=== PATIENT | female | born 1995 | race Caucasian/White ===

== ENCOUNTER 2016-04-19 10:28 | Emergency (ER) | payer OTHER ==
[2016-04-19 11:04] VITALS: BP 140/70; PULSE 70; RESP 20; TEMP 98.3; O2SAT 98
[2016-04-19 11:11] LABS: APPEARANCE,URINE Slightly Cloudy; BILIRUBIN,URINE NEGATIVE (NEGATIVE); COLOR,URINE Yellow; GLUCOSE, URINE (UA) NEGATIVE (NEGATIVE); KETONES,URINE NEGATIVE (NEGATIVE); LEUKOCYTE ESTERASE ,URINE NEGATIVE (NEGATIVE); NITRATE,URINE NEGATIVE (NEGATIVE); OCCULT BLOOD,URINE NEGATIVE (NEG-TRACE); UROBILINOGEN,URINE 0.2 (0.2-1.0 EU)
[2016-04-19 11:20] LABS: RBC,URINE NEG (0-3AV/HPF); WBC,URINE 0-1 (0-5AV/HPF)
== END 2016-04-19 11:35 | disposition home or self-care (01) ==
LOC: ED 10:28
DX: N39.0 Urinary tract infection, site not specified (principal); K59.00 Constipation, unspecified
CPT/HCPCS: 81001; 99282; 99284

== ENCOUNTER 2016-07-07 09:59 | Emergency (ER) | payer OTHER ==
[2016-07-07 10:53] LABS: BASOPHILS % (AUTO) 1 % (0-3); EOSINOPHILS % (AUTO) 2 % (0-9); HEMATOCRIT 35 % (35-47); MEAN CORPUSCULAR HGB CONC 34.9 gm/dl (32.0-36.0); MONOCYTES % (AUTO) 8.2 % (0-12); NEUTROPHILS % (AUTO) 64.2 % (37-80)
[2016-07-07 10:54] LABS: MEAN CORPUSCULAR VOLUME 81 fL (81-99)
[2016-07-07 10:57] LABS: AMPHETAMINES NEGATIVE (NEGATIVE); METHADONE NEGATIVE (NEGATIVE); OPIATES(OP13) NEGATIVE (NEGATIVE); OXYCODONE(OXY) NEGATIVE (NEGATIVE); PROPOXYPHENE(PPX) NEGATIVE (NEGATIVE); TRICYCLIC ANTIDEPRESSANTS NEGATIVE (NEGATIVE)
[2016-07-07 11:17] LABS: ALBUMIN 3.8 gm/dl (3.4-5.0); CALCIUM 8.1 mg/dl (8.5-10.1); POTASSIUM 3.5 mMol/L (3.5-5.1); THYROID STIMULATING HORMONE 1.465 uIU/ml (0.358-3.740)
[2016-07-07 13:29] VITALS: BP 109/71; PULSE 64; RESP 16; TEMP 96.8; O2SAT 99
== END 2016-07-07 12:14 | disposition home or self-care (01) ==
LOC: ED 09:59
DX: R45.851 Suicidal ideations (principal)
CPT/HCPCS: 36415; 80053; 80305; 84443; 84703; 85025; 99282

== ENCOUNTER 2016-09-15 14:30 | Emergency (ER) | payer OTHER ==
[2016-09-15 15:19] VITALS: O2SAT 98
[2016-09-15 15:41] VITALS: RESP 16
[2016-09-15 16:28] LABS: BASOPHILS % (AUTO) 1 % (0-3); EOSINOPHILS % (AUTO) 2 % (0-9); HEMATOCRIT 38 % (35-47); MEAN CORPUSCULAR HGB CONC 34.9 gm/dl (32.0-36.0); MONOCYTES % (AUTO) 9.3 % (0-12); NEUTROPHILS % (AUTO) 59.3 % (37-80)
[2016-09-15 16:29] VITALS: BP 118/76; PULSE 54; TEMP 97.8
[2016-09-15 16:33] LABS: MEAN CORPUSCULAR VOLUME 81 fL (81-99)
[2016-09-15 16:38] LABS: APPEARANCE,URINE Cloudy; BILIRUBIN,URINE NEGATIVE (NEGATIVE); COLOR,URINE Yellow; GLUCOSE, URINE (UA) NEGATIVE (NEGATIVE); KETONES,URINE NEGATIVE (NEGATIVE); LEUKOCYTE ESTERASE ,URINE NEGATIVE (NEGATIVE); NITRATE,URINE NEGATIVE (NEGATIVE); OCCULT BLOOD,URINE TRACE INTACT (NEG-TRACE); PH,URINE 5.5; UROBILINOGEN,URINE 0.2 (0.2-1.0 EU)
[2016-09-15 16:52] LABS: ALBUMIN 4.1 gm/dl (3.4-5.0); ALT 26 IU/L (14-63); CALCIUM 9.1 mg/dl (8.5-10.1); GLOM FILT RATE 98 mL/min (>60); POTASSIUM 3.9 mMol/L (3.5-5.1); SALICYLATE < 2.8 mg/dl (2.8-30.0); SODIUM 140 mMol/L (136-145); THYROID STIMULATING HORMONE 1.744 uIU/ml (0.358-3.740)
[2016-09-15 16:57] LABS: RBC,URINE 0-2 (0-3AV/HPF); WBC,URINE 0-4 (0-5AV/HPF)
[2016-09-15 16:58] LABS: AMPHETAMINES NEGATIVE (NEGATIVE); METHADONE NEGATIVE (NEGATIVE); OPIATES(OP13) NEGATIVE (NEGATIVE); OXYCODONE(OXY) NEGATIVE (NEGATIVE); PROPOXYPHENE(PPX) NEGATIVE (NEGATIVE); TRICYCLIC ANTIDEPRESSANTS NEGATIVE (NEGATIVE)
== END 2016-09-15 20:05 | disposition short-term general hospital (02) ==
LOC: ED 14:30
DX: R45.851 Suicidal ideations (principal)
CPT/HCPCS: 36415; 80053; 80305; 80307; 81001; 84443; 84703; 85025; 99284

== ENCOUNTER 2016-10-07 18:59 | Emergency (ER) | payer OTHER ==
[2016-10-07 19:27] VITALS: BP 113/69; PULSE 68; RESP 16; TEMP 97.6; O2SAT 99
[2016-10-07] MEDS ORDERED: SERTRALINE HYDROCHLORIDE 50 MG TAB PO ONE (20:02)
[2016-10-07] MEDS ORDERED: SERTRALINE HYDROCHLORIDE 50 MG TAB ONE (20:05)
== END 2016-10-07 20:09 | disposition home or self-care (01) ==
LOC: ED 18:59
DX: R45.851 Suicidal ideations (principal)
CPT/HCPCS: 99282